=== PATIENT | male | born 1955 | race Caucasian/White ===

== ENCOUNTER 2021-10-22 08:55 | Day surgery (SDC) | payer MEDICARE, OTHER, SELFPAY ==
[2021-10-17 09:47] VITALS: BMI 30.4
--- NOTE | 2021-10-19 10:59 | HO.ANESPROP2 ---
Documented by User: Brittny Darnell NP 10/19/21 11:00 HPI - Anesthesia Eval Consult details Narrative: 66yo M for Colonoscopy [facility] Past Medical History Medical History (Updated 10/17/21 @ 09:45 by Donna Fountain RN) Elevated cholesterol Surgical History Surgical History (Updated 10/17/21 @ 09:45 by Donna Fountain RN) H/O colonoscopy Hx of bilateral inguinal hernia repair Hx of cataract extraction Social History Social History Patient Tobacco Use Status: Former Tobacco user Tobacco use type: Cigarette Years Smoked: 12 Smoked in Last 30 Days: No Use of substances other than those prescribed or required for medical reasons: No Are you DNR?: No Advance Directives: No Advance Directives Information Provided: Yes Meds Allergies Allergy/AdvReac Type Severity Reaction Status Date / Time [id number] Reductase AdvReac Intermediate Headache Verified 10/22/21 09:39 Inhibitor Home Medications Medication Instructions Recorded Confirmed Last Taken Type lovastatin 20 mg tablet 1 tab PO QPM 10/17/21 10/17/21 Unknown History omega 3-ghp-csj-fish oil 1,000 mg 1 cap PO DAILY 10/17/21 10/22/21 10/11/21 History (120 mg-180 mg) capsule (Fish Oil) sildenafil 25 mg tablet 1 tab PO DAILY PRN 10/17/21 10/17/21 Unknown History Exam Exam Date and Time: October 19, 2021 1059 Height,Weight and Vital Signs: Height 5 ft 8 in Weight 90.718 kg Assessment and Plan Assessment Anesthesia Assessment: Chart Reviewed Documented by User: Damir Bonilla MD 10/22/21 16:59 HPI - Anesthesia Eval Consult details Narrative: 66yo M for Colonoscopy HTN undiagnosed , Obesity [facility] Past Medical History Medical History (Updated 10/17/21 @ 09:45 by Donna Fountain RN) Elevated cholesterol Family History Family history of problems with anesthesia: No Surgical History Surgical History (Updated 10/17/21 @ 09:45 by Donna Fountain RN) H/O colonoscopy Hx of bilateral inguinal hernia repair Hx of cataract extraction History of Problems with Anesthesia: No Social History Social History Patient Tobacco Use Status: Former Tobacco user Tobacco use type: Cigarette Years Smoked: 12 Smoked in Last 30 Days: No Use of substances other than those prescribed or required for medical reasons: No Are you DNR?: No Advance Directives: No Advance Directives Information Provided: Yes Meds Allergies Allergy/AdvReac Type Severity Reaction Status Date / Time [id number]-[id number]-[id number] Reductase AdvReac Intermediate Headache Verified 10/22/21 09:39 Inhibitor Home Medications Medication Instructions Recorded Confirmed Last Taken Type lovastatin 20 mg tablet 1 tab PO QPM 10/17/21 10/17/21 Unknown History omega 9-gvj-ybz-fish oil 1,000 mg 1 cap PO DAILY 10/17/21 10/22/21 10/11/21 History (120 mg-180 mg) capsule (Fish Oil) sildenafil 25 mg tablet 1 tab PO DAILY PRN 10/17/21 10/17/21 Unknown History Exam Airway Mallampati Class: II TM Dist: >3cm Neck ROM: Full Loose/Missing/Broken Teeth: Yes Heart: S1, S2 Lungs: b/l breath sounds Assessment and Plan Assessment Anesthesia Assessment: Anesthesia Plan Discussed Final Anesthetic Review Family History of Problems with Anesthesia: No History of Problems with Anesthesia: No NPO: Yes ASA Class: III Final Preanesthetic Review: Meds/Allgs Chart Reviewed, Consent Obtained/Reviewed and Anes Risks/Benef Reviewed Patient Risk: Intermediate Procedure Risk: Intermediate Anesthetic Plan Anesthetic Plan: MAC: Disposition: Standard PACU
[2021-10-22 10:05] VITALS: BP 170/96; PULSE 66; RESP 16; TEMP 36.6; O2SAT 98; BMI 31.1
[2021-10-22] MEDS: Lactated Ringers 1,000 ML 100 ML IVCONT (10:10)
--- NOTE | 2021-10-22 11:37 | P.BOP_ITS ---
Brief Operative Note Date of Service: 10/22/21 Pre-op diagnosis: Screening Post-op diagnosis: other (Colon polyp) Procedure: Colonoscopy to the cecum and TI with biopsy and removal of polyp Surgeon: Andrea Méndez Anesthesia: MAC Was an Mash Filter Press Operator used for this Procedure?: No Estimated blood loss (mL): 2.0 Pathology: other (A. Transverse colon polyp) Condition: stable Disposition: PACU
[2021-10-22 11:44] VITALS: BP 117/82; PULSE 115; RESP 15; TEMP 36.7; O2SAT 98
[2021-10-22 11:59] VITALS: BP 135/86; PULSE 80; RESP 16; TEMP 36.6; O2SAT 97
--- NOTE | 2021-10-22 14:11 | OP_ITS ---
SURGEON: Andrea Méndez MD INDICATIONS: The patient presents for evaluation of colorectal cancer screening, personal history of colon polyps, and family history of colon cancer. Full consent was obtained from him for this, including risks of bleeding and perforation. PREOPERATIVE DIAGNOSIS: POSTOPERATIVE DIAGNOSIS: PROCEDURE PERFORMED: Colonoscopy to cecum and terminal ileum with biopsy and removal of polyp. ESTIMATED BLOOD LOSS: COMPLICATIONS: ANESTHESIA: Monitored anesthesia care. ASSISTANTS: SPECIMENS: PREOPERATIVE DIAGNOSES: Colorectal cancer screening, personal history of colon polyps, family history of colon cancer. POSTOPERATIVE DIAGNOSES: Colorectal cancer screening, personal history of colon polyps, family history of colon cancer, small colon polyp, diverticulosis and internal hemorrhoids. DESCRIPTION OF PROCEDURE: The patient was placed in the left lateral decubitus position. The digital rectal exam revealed no abnormalities. The Olympus video pediatric colonoscope was entered into the rectum and advanced easily to the cecum. Once in the cecum, I did identify normal-appearing cecal pouch with appendiceal orifice and a normal-appearing ileocecal valve. The terminal ileum was cannulated and appeared normal. The scope was withdrawn back from the colon. The entire cecum and ileocecal valve appeared normal. The scope was then slowly withdrawn assessing all mucosal surfaces carefully. Preparation was excellent. In the transverse colon was a 3 or 4 mm polyp, which was biopsied and completely removed with cold biopsy forceps. I did not visualize any other polyps, colitis, nor angiodysplasia. There was a mild amount of sigmoid diverticulosis. In the rectum, the scope was retroflexed visualizing internal hemorrhoids, but no other pathology. The rectal mucosa appeared normal. Scope was straightened and withdrawn from the patient. He tolerated the procedure well and was returned to recovery area in stable condition. IMPRESSION: 1. Small colon polyp, status post biopsy removal. 2. Diverticulosis. 3. Internal hemorrhoids. PLAN: The results of biopsy will be checked. I would recommend a repeat colonoscopy in 5 years for further screening and surveillance. He will otherwise see me on a p.r.n. basis. MD ELLIOT Means/ALEX / [id number]
== END 2021-10-22 12:37 | disposition home or self-care (01) ==
PROVIDERS: PCP Internal Medicine; Visit Provider Internal Medicine
PROC: 0DJD8ZZ Inspection of Lower Intestinal Tract, Via Natural or Artificial Opening Endoscopic (ICD-10-PCS; CPT 45378; principal; 2021-10-22 10:10)
DX: Z12.11 Encounter for screening for malignant neoplasm of colon (principal); Z86.010 Personal history of colon polyps; Z80.0 Family history of malignant neoplasm of digestive organs; D12.3 Benign neoplasm of transverse colon; K57.30 Diverticulosis of large intestine without perforation or abscess without bleeding; K64.8 Other hemorrhoids; E78.5 Hyperlipidemia, unspecified; Z79.899 Other long term (current) drug therapy; Z88.8 Allergy status to other drugs, medicaments and biological substances; Z87.891 Personal history of nicotine dependence
CPT/HCPCS: 45380; 88305; J2250